=== PATIENT | female | born 1990 | race Two or more races ===

== ENCOUNTER 2024-07-30 15:08 | Inpatient (IN) | payer OTHER ==
[~2024-07-30] VITALS: Ht 152.4 cm; Wt 68.3 kg
--- NOTE | 2024-07-30 16:51 | ED.PDOC ---
History of Present Illness HPI Comments A 34 year old female presents to the ED with a chief complaint of RT eye vision loss onset today. Patient states she began experiencing dizziness and loss of vision of RT eye today. Patient experienced similar symptoms about 1 month ago during night time, went to sleep and symptoms resolved when she woke up. Patient denies any past medical history as well as head injury, LOC, eye injury, chest pain, shortness of breath, nausea, vomiting, diarrhea. No other symptoms or modifying factors present at this time. 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 Family History Family History: Reviewed,noncontributory to illness, No family hx of Cancer, No family hx of DM, No family hx of Heart michael, No family hx of HTN, No family hx ofKidney michael, No family hx of Liver michael, No family hx of Lung michael, No family hx of Stroke Social History Smoker: Non-Smoker Alcohol: Denies ETOH Use Drugs: Denies Drug Use Lives In: Home Constitutional: denies: chills, diaphoresis, fatigue, fever, malaise, sweats, weakness, others EENTM: reports: blurred vision, others (Loss of vision RT eye ); denies: double vision, ear bleeding, ear discharge, ear drainage, ear pain, ear ringing, eye pain, eye redness, hearing loss, mouth pain, mouth swelling, nasal discharge, nose bleeding, nose congestion, nose pain, photophobia, tearing, throat pain, throat swelling, voice changes Respiratory: denies: cough, hemoptysis, orthopnea, SOB at rest, shortness of breath, SOB with excertion, stridor, wheezing, others Cardiovascular: denies: chest pain, dizzy spells, diaphoresis, Dyspnea on exertion, edema, irregular heart beat, left arm pain, lightheadedness, palpitations, PND, syncope, others Gastrointestinal: denies: abdomen distended, abdominal pain, blood streaked bowels, constipated, diarrhea, dysphagia, difficulty swallowing, hematemesis, melena, nausea, poor appetite, poor fluid intake, rectal bleeding, rectal pain, vomiting, others Genitourinary: denies: abnormal vagina bleeding, burning, dyspareunia, dysuria, flank pain, frequency, hematuria, incontinence, pain, , vagina discharge, urgency, others Neurological: denies: dizziness, fainting, headache, left sided numbness, left sided weakness, numbness, paresthesia, pre-existing deficit, right sided numbne ss, right sided weakness, seizure, speech problems, tingling, tremors, weakness, others Musculoskeletal: denies: back pain, gout, joint pain, joint swelling, muscle pain, muscle stiffness, neck pain, others Integumetry: denies: bruises, change in color, change in hair/nails, dryness, laceration, lesions, lumps, rash, wounds, others Allergic/Immunocompromised: denies: Difficulty Healing, Frequent Infections, Hives, Itching, others Hematologic/Lymphatic: denies: anemia, blood clots, easy bleeding, easy bruising, swollen glands, others Endocrine: denies: excessive hunger, excessive sweating, excessive thirst, excessive urination, flushing, intolerance to cold, intolerance to heat, unexplained weight gain, unexplained weight loss, others Psychiatric: denies: anxiety, bipolar disorder, depression, hopeless, panic disorder, schizophrenia, sleepless, suicidal, others All Other Systems: Reviewed and Negative Physical Exam General Appearance: No Apparent Distress, Normal HEENT: Normal ENT Inspection, Pharynx Normal, TMs Normal Neck: Full Range of Motion, Non-Tender, Normal, Normal Inspection Respiratory: Chest Non-Tender, Lungs Clear, No Accessory Muscle Use, No Respiratory Distress, Normal Breath Sounds Cardiovascular: No Edema, No JVD, No Murmur, No Gallop, Normal Peripheral Pulses, Regular Rate/Rhythm Breast Exam: Deferred Gastrointestinal: No Organomegaly, Non Tender, No Pulsatile Mass, Normal Bowel Sounds, Soft Genitalia: Deferred Pelvic: Deferred Rectal: Deferred Extremities: No calf tenderness, Normal capillary refill, Normal inspection, Normal range of motion, Non-tender, No pedal edema Musculoskeletal : Apperance: Normal Neurologic: Alert, customer counter representative II-XII nml as Tested, No Motor Deficits, Normal Affect, Normal Mood, No Sensory Deficits Cerebellar Function: Normal Reflexes: Normal Skin: Dry, Normal Color, Warm Lymphatic: No Adenopathy Was a procedure done? Was a procedure done?: No Differential Dx Considerations may include: CVA, central retinal occlusion, retinal detachment X-Ray, Labs, Meds, VS Vital Signs Date Time Temp Pulse Resp B/P (MAP) Pulse Ox O2 Delivery O2 Flow Rate FiO2 07/30/24 16:40 97.7 90 18 137/75 (95) 10 Lab Test 07/30/24 17:36 07/30/24 16:49 Range/Units White Blood Count 7.6 4.4-10.8 10^3/uL Red Blood Count 3.97 L 4.0-5.20 10^6/uL Hemoglobin 7.4 L 12.2-16.2 g/dL Hematocrit 25.3 L 36.0-46.0 % Mean Corpuscular Volume 63.9 L 80.0-100.0 fL Mean Corpuscular Hemoglobin 18.7 L 28.0-32.0 pg Mean Corpuscular Hemoglobin Concent 29.3 L 32.0-36.0 g/dL Red Cell Distribution Width 18.6 H 11.8-14.3 % Platelet Count 351 140-450 10^3/uL Mean Platelet Volume 8.0 6.9-10.8 fL Neutrophils (%) (Auto) 71.1 37.0-80.0 % Lymphocytes (%) (Auto) 20.1 10.0-50.0 % Monocytes (%) (Auto) 6.5 0.0-12.0 % Eosinophils (%) (Auto) 1.4 0.0-7.0 % Basophils (%) (Auto) 0.9 0.0-2.0 % Neutrophils # (Auto) 5.4 1.6-8.6 10 ^3/uL Lymphocytes # (Auto) 1.5 0.4-5.4 10 ^3/uL Monocytes # (Auto) 0.5 0-1.3 10 ^3/uL Eosinophils # (Auto) 0.1 0-0.8 10 ^3/uL Basophils # (Auto) 0.1 0-0.2 10 ^3/uL Nucleated Red Blood Cells 0.1 % Platelet Estimate Adequate Hypochromasia (manual) Marked Microcytosis Marked Prothrombin Time 10.9 9.3-11.8 sec Prothrombin Time INR 1.03 0.9-1.15 Sodium Level 140 136-145 mmol/L Potassium Level 3.6 3.5-5.1 mmol/L Chloride Level 111 H 98-107 mmol/L Carbon Dioxide Level 22 20-31 mmol/L Anion Gap 7 5-15 Blood Urea Nitrogen 17 9-23 mg/dL Creatinine 0.65 0.550-1.02 mg/dL Glomerular Filtration Rate Calc 117 >90 mL/min BUN/Creatinine Ratio 26.2 H 10.0-20.0 Serum Glucose 96 74-106 mg/dL Calcium Level 9.5 8.7-10.4 mg/dL POC Glucose 98 70-106 mg/dl [place] [address] Ph: [phone] DIAGNOSTIC IMAGING Diagnostic Imaging Report : [id number] Signed PATIENT: LIEN VAZQUEZ ACCT: [id number] UNIT: [id number] : 1990 LOC: ER ROOM / BED: / AGE / SEX: 34 / F ADM STATUS: REG ER SERVICE [id number] ORDERING PHYSICIAN: YE TIM MD PROCEDURE(s): HWOCT - HEAD WITHOUT CONTRAST REASON: right eye vision loss ORDER NUMBER(s): [id number], ACCESSION NUMBER(s): [id number] EXAM: CT HEAD WITHOUT CONTRAST HISTORY: right eye vision loss TECHNIQUE: Helical axial scans of the head and neck obtained during the arterial phase of intravenous contrast enhancement. Multiplanar reformats. Postprocessing MIP and 3-D images. One or more of the following radiation dose reduction techniques were used for this examination: automated exposure control, adjustment of the mA and/or kV according to patient size, use of iterative reconstruction technique. Determination of the degree of stenosis in the internal carotid arteries is obtained using measurements of distal internal carotid diameter (directly or indirectly) as the denominator for stenosis measurement. The method utilized is similar to that utilized in the [place] Symptomatic Carotid Endarterectomy Trial (NASCET) method. If the degree of stenosis is greater than 30%, the actual percentage stenosis is given in the body of the report COMPARISON: None FINDINGS: No acute intracranial hemorrhage or evidence of large vessel territorial infarction identified on the noncontrast CT of the head. No midline shift. The basilar cisterns are patent. Asher-white differentiation appears relatively preserved. The visualized paranasal sinuses and mastoid air cells are clear. No grossly displaced calvarial abnormalities identified. VISUALIZED AORTIC ARCH: The visualized aortic arch appears normal in caliber. The visualized subclavian arteries appear patent. RIGHT CAROTID SYSTEM CERVICAL: Common carotid artery: Patent Internal carotid artery: Patent External carotid artery: Patent LEFT CAROTID SYSTEM CERVICAL: Common carotid artery: Normal Internal carotid artery: Normal External carotid artery: Normal VERTEBROBASILAR SYSTEM: Right vertebral artery: Patent Left vertebral artery: Patent Basilar artery: Patent RIGHT INTRACRANIAL VASCULATURE Internal carotid artery: Patent Middle cerebral artery: Patent Anterior cerebral artery: Patent LEFT INTRACRANIAL VASCULATURE Internal carotid artery: Patent Middle cerebral artery: Patent Anterior cerebral artery: Patent IMPRESSION: No acute intracranial hemorrhage or evidence of large vessel territorial infarction identified at this time. If there is persistent clinical concern, MRI may be obtained to further evaluate. No significant stenoses, occlusions or sizable aneurysmal dilatations identified involving the cervical or major intracranial arterial vasculature. ATED BY: LISANDRO TEJEDA MD DICTATED DATE/TIME: 07/30/241813 SIGNED BY: LISANDRO TEJEDA MD SIGNED DATE/TIME: 07/30/241813 CC: [place] [address] Ph: [phone] DIAGNOSTIC IMAGING Diagnostic Imaging Report : [id number] Signed PATIENT: LIEN VAZQUEZ ACCT: [id number] UNIT: [id number] : 1990 LOC: ER ROOM / BED: / AGE / SEX: 34 / F ADM STATUS: REG ER SERVICE 21 ORDERING PHYSICIAN: YE TIM MD PROCEDURE(s): [place] - ANGIO HEAD/Neck REASON: right eye pain ORDER NUMBER(s): [id number], ACCESSION NUMBER(s): [id number] EXAM: CT HEAD WITHOUT CONTRAST, CT ANGIO HEAD/Neck HISTORY: right eye vision loss TECHNIQUE: Helical axial scans of the head and neck obtained during the arterial phase of intravenous contrast enhancement. Multiplanar reformats. Postprocessing MIP and 3-D images. One or more of the following radiation dose reduction techniques were used for this examination: automated exposure control, adjustment of the mA and/or kV according to patient size, use of iterative reconstruction technique. Determination of the degree of stenosis in the internal carotid arteries is obtained using measurements of distal internal carotid diameter (directly or indirectly) as the denominator for stenosis measurement. The method utilized is similar to that utilized in the [place] Symptomatic Carotid Endarterectomy Trial (NASCET) method. If the degree of stenosis is greater than 30%, the actual percentage stenosis is given in the body of the report COMPARISON: None FINDINGS: No acute intracranial hemorrhage or evidence of large vessel territorial infarction identified on the noncontrast CT of the head. No midline shift. The basilar cisterns are patent. Asher-white differentiation appears relatively preserved. The visualized paranasal sinuses and mastoid air cells are clear. No grossly displaced calvarial abnormalities identified. VISUALIZED AORTIC ARCH: The visualized aortic arch appears normal in caliber. The visualized subclavian arteries appear patent. RIGHT CAROTID SYSTEM CERVICAL: Common carotid artery: Patent Internal carotid artery: Patent External carotid artery: Patent LEFT CAROTID SYSTEM CERVICAL: Common carotid artery: Normal Internal carotid artery: Normal External carotid artery: Normal VERTEBROBASILAR SYSTEM: Right vertebral artery: Patent Left vertebral artery: Patent Basilar artery: Patent RIGHT INTRACRANIAL VASCULATURE Internal carotid artery: Patent Middle cerebral artery: Patent Anterior cerebral artery: Patent LEFT INTRACRANIAL VASCULATURE Internal carotid artery: Patent Middle cerebral artery: Patent Anterior cerebral artery: Patent IMPRESSION: No acute intracranial hemorrhage or evidence of large vessel territorial infarction identified at this time. If there is persistent clinical concern, MRI may be obtained to further evaluate. No significant stenoses, occlusions or sizable aneurysmal dilatations identified involving the cervical or major intracranial arterial vasculature. ATED BY: LISANDRO TEJEDA MD DICTATED DATE/TIME: 07/30/241812 SIGNED BY: LISANDRO TEJEDA MD SIGNED DATE/TIME: 07/30/241812 CC: Time of 1ST Reevaluation: 17:15 Reevaluation 1ST: Unchanged Patient Education/Counseling: Diagnosis, Treatment, Prognosis Family Education/Counseling: No Family Present Additional Information The following tests were ordered, and results were reviewed by me: BMP, CBC, PROTHROMBIN TIME W/ INR, UA, PREGUA, CT HEAD WO CONTRAST, CT ANGIO HEAD/NECK I reviewed and agreed with the following test results read by other providers: CT HEAD WO CONTRAST, CT ANGIO HEAD/NECK I discussed treatment and results with medical personnel, patient Departure 1 Departure Time of Disposition: 19:10 (Patient with emergent neurologic concern. Discussed the case with ophthalmology at [facility] who refused this patient because the opthalmologist did not think this patient warrented emergent opthalmologic evaluation. Patient was evaluated for stroke by tele stroke who recommended patient be admitted for MRI and further workup. ) Impression: Primary Impression: Vision loss of right eye Disposition: ADMITTED INPATIENT Admit to: Med Surg Condition: Guarded Critical Care Note Critical Care Time?: Yes Critical care comment: Acute vision loss Authorized and Performed by: Ye Tim MD Total critical care time: Approximately 38 minutes Due to a high probability of clinically significant, life threatening deterioration, the patient required my highest level of preparedness to intervene emergently and I personally spent this critical care time directly and personally managing the patient. This critical care time included obtaining a history; examining the patient; pulse oximetry; ordering and review of studies; arranging urgent treatment with development of a management plan; evaluation of patient's response to treatment; frequent reassessment; and, discussions with other providers. This critical care time was performed to assess and manage the high probability of imminent, life-threatening deterioration that could result in multi-organ failure. It was exclusive of separately billable procedures and treating other patients and teaching time. Please see my other sections and the rest of the note for further information on patient assessment and treatment. Stability Stability form required: No Heart Score Heart Score: Heart Score Response (Comments) Value History N/A 0 EKG N/A 0 Age N/A 0 Risk Factors N/A 0 Troponin N/A 0 Total 0 I personally scribed for YE TIM MD ([email or web address]) on 07/30/24 at 16:51. Electronically submitted by Janneth Rollins ([email or web address]). I personally scribed for YE TIM MD ([email or web address]) on 07/30/24 at 16:52. Electronically submitted by Janneth Rollins ([email or web address]). I personally scribed for YE TIM MD ([email or web address]) on 07/30/24 at 17:29. Electronically submitted by Janneth Rollins ([email or web address]). I personally scribed for YE TIM MD ([email or web address]) on 07/30/24 at 18:36. Electronically submitted by Janneth Rollins ([email or web address]). YE TIM MD Jul 30, 2024 16:51
[2024-07-30] MEDS: IOHEXOL 350 MG/ML 100ML IJ ONE (17:50)
--- NOTE | 2024-07-30 18:10 | BSKYNEURO ---
[facility] Note # Demographics Consult Type: Acute Stroke Level 1 (0-4.5 hrs) Patient Location: Emergency Room First Name: LIEN Last Name: TAYLOR Date of : 1990 Age: 34 Facility: [facility] Time of Initial Page (): 07/30/2024, 17:29 Time of Return Call (): 07/30/2024, 17:29 # HPI History: Right eye vision loss and dizziness while in car. Painless Last Known Normal: 1600 mst # Scores Time of exam and NIHSS (): 07/30/2024, 18:03 Level of Consciousness 1a: [0] = Alert; keenly responsive LOC Questions 1b: [0] = Answers both questions correctly LOC Commands 1c: [0] = Performs both tasks correctly Best Gaze 2: [0] = Normal Visual 3: [0] = No visual loss Facial Palsy 4: [0] = Normal symmetrical movements Motor Arm Left 5a: [0] = No drift Motor Arm Right 5b: [0] = No drift Motor Leg Left 6a: [0] = No drift Motor Leg Right 6b: [0] = No drift Limb Ataxia 7: [0] = Absent Sensory 8: [0] = Normal Best Language 9: [0] = No aphasia Dysarthria 10: [0] = Normal Extinction and Inattention 11: [0] = No abnormality NIHSS Total: 0 # Exam Vitals: vital signs reviewed Additional Neurologic Exam: has some light perception in right eye on lateral side # Data Head CT: - no bleed - preliminarily reviewed by me, please refer to radiology read for official reading # Assessment Impression: CRAO vs other ophthalmologic cause vs mimic. No clear risk factors and very young. Recommend dedicated dilated eye exam. # Plan Thrombolytic/Intervention: Possible IA candidate Thrombolytic Exclusion (< 3 hour window): - non-disabling deficit Thrombolytic Exclusion: would not recommend thrombolytics without dedicated funduscopic exam. Possible IA Candidate: - CTA pending Target Blood Pressure: SBP < 220 Labs: - hemoglobin A1c - lipid panel Imaging: (urgency: STAT): - CT Angiogram Head and CT Angiogram Neck AND call back with results if abnormal Imaging: (urgency: routine): - MRI Brain without contrast Diagnostic Test: - echo with bubble study Therapy/Evaluation: - NPO until swallow evaluation - PT/OT evaluation - speech/swallow consultation Medication: - start statin with goal of LDL < 70 - Plavix 300 mg PO x1 now, then 75 mg daily x 21 days + asa 81mg x 21 days, followed by monotherapy thereafter Other: - If patient has any neurological deterioration please call me back immediately - I have discussed my recommendations with the referring provider - telemetry monitoring - LDL < 70 - will need event monitor or loop recorder as outpatient if atrial fibrillation not found as inpatient Additional Recommendations: stroke workup in the young if no other etiology identified. Disposition: observation # Logistics Attestation of consult completion: The patient is located at: [facility]. Facility staff participated in the visit. I performed this telemedicine visit from my offsite office utilizing interactive 2 way audio and visual telecommunication technology. Total time spent in telemedicine encounter: I spent 21 minutes reviewing clini yoli data and/or imaging, obtaining history, examining the patient, communicating with the onsite care team, and in preparation of this report. Critical Care time: 21 minutes of this encounter were critical care time. Due to a high probability of clinically significant, life-threatening neurologic deterioration, the patient required my highest level of preparedness to intervene emergently. I spent this critical care time managing the patient in conjunction with on-site providers who requested my consultation. In addition to the above, this critical care time included recommendation and review of studies, including imaging; arranging an urgent treatment and management plan with on-site providers; evaluation of patient's response to treatment; and documentation. This critical care time was performed to assess and manage the high probability of imminent, life-threatening deterioration that could result in neurologic catastrophe. # Demographics First Name: LIEN Last Name: TAYLOR Facility: [facility] Electronically signed at 07/30/2024 18:12 ([place] Time) by Henry Aponte MD Yes SANDY APONTE MD Jul 30, 2024 18:10
--- NOTE | 2024-07-30 18:16 | DVH ---
EXAM: CT HEAD WITHOUT CONTRAST, CT ANGIO HEAD/Neck HISTORY: right eye vision loss TECHNIQUE: Helical axial scans of the head and neck obtained during the arterial phase of intravenous contrast enhancement. Multiplanar reformats. Postprocessing MIP and 3-D images. One or more of the f ollowing radiation dose reduction techniques were used for this examination: automated exposure contr ol, adjustment of the mA and/or kV according to patient size, use of iterative reconstruction techniq ue. Determination of the degree of stenosis in the internal carotid arteries is obtained using measureme nts of distal internal carotid diameter (directly or indirectly) as the denominator for stenosis cristopher urement. The method utilized is similar to that utilized in the [place] Symptomatic Carotid E ndarterectomy Trial (NASCET) method. If the degree of stenosis is greater than 30%, the actual percen tage stenosis is given in the body of the report COMPARISON: None FINDINGS: No acute intracranial hemorrhage or evidence of large vessel territorial infarction identified on the noncontrast CT of the head. No midline shift. The basilar cisterns are patent. Asher-white differen tiation appears relatively preserved. The visualized paranasal sinuses and mastoid air cells are clear. No grossly displaced calvarial abno rmalities identified. VISUALIZED AORTIC ARCH: The visualized aortic arch appears normal in caliber. The visualized subclavian arteries appear patent. RIGHT CAROTID SYSTEM CERVICAL: Common carotid artery: Patent Internal carotid artery: Patent External carotid artery: Patent LEFT CAROTID SYSTEM CERVICAL: Common carotid artery: Normal Internal carotid artery: Normal External carotid artery: Normal VERTEBROBASILAR SYSTEM: Right vertebral artery: Patent Left vertebral artery: Patent Basilar artery: Patent RIGHT INTRACRANIAL VASCULATURE Internal carotid artery: Patent Middle cerebral artery: Patent Anterior cerebral artery: Patent LEFT INTRACRANIAL VASCULATURE Internal carotid artery: Patent Middle cerebral artery: Patent Anterior cerebral artery: Patent IMPRESSION: No acute intracranial hemorrhage or evidence of large vessel territorial infarction identified at thi s time. If there is persistent clinical concern, MRI may be obtained to further evaluate. No significant stenoses, occlusions or sizable aneurysmal dilatations identified involving the cervic al or major intracranial arterial vasculature.
[2024-07-30 18:38] LABS: Potassium 3.6 mmol/L (3.5-5.1); Sodium 140 mmol/L (136-145)
[2024-07-30 18:39] LABS: Anion Gap 7 (5-15); Calcium 9.5 mg/dL (8.7-10.4); Carbon Dioxide 22 mmol/L (20-31)
[2024-07-30 18:42] LABS: Basophils # (auto) 0.1 10 ^3/uL (0-0.2); Basophils % (auto) 0.9 % (0.0-2.0); Eosinophils # (auto) 0.1 10 ^3/uL (0-0.8); Eosinophils % (auto) 1.4 % (0.0-7.0); Hematocrit 25.3 % (36.0-46.0); Hemoglobin 7.4 g/dL (12.2-16.2); Lymphocytes # (auto) 1.5 10 ^3/uL (0.4-5.4); Lymphocytes % (auto) 20.1 % (10.0-50.0); Mean Corpuscular Hemoglobin 18.7 pg (28.0-32.0); Mean Corpuscular Hgb Conc. 29.3 g/dL (32.0-36.0); Mean Corpuscular Volume 63.9 fL (80.0-100.0); Monocytes # (auto) 0.5 10 ^3/uL (0-1.3); Monocytes % (auto) 6.5 % (0.0-12.0); Neutrophils # (auto) 5.4 10 ^3/uL (1.6-8.6); Neutrophils % (auto) 71.1 % (37.0-80.0); Nucleated Red Blood Cells % 0.1 %; Platelet Count (auto) 351 10^3/uL (140-450); Red Blood Cells 3.97 10^6/uL (4.0-5.20); Red Cell Distribution Width 18.6 % (11.8-14.3); White Blood Cell 7.6 10^3/uL (4.4-10.8)
[2024-07-30 18:43] LABS: Hypochromia Marked; Platelet Estimate Adequate
[2024-07-30 18:44] LABS: BUN/Creatinine Ratio 26.2 (10.0-20.0); Blood Urea Nitrogen 17 mg/dL (9-23); Glucose 96 mg/dL (74-106)
[2024-07-30 18:48] LABS: Chloride 111 mmol/L (98-107)
[2024-07-30 18:49] LABS: INR 1.03 (0.9-1.15); Prothrombin Time 10.9 sec (9.3-11.8)
[2024-07-30] MEDS: ACETAMINOPHEN 325 MG TAB PO ONE (19:54)
[2024-07-30] MEDS ORDERED: ONDANSETRON HCL 4 MG/2 ML VIAL IV PRN (20:15)
[2024-07-30] MEDS ORDERED: DOCUSATE SOD 100 MG CAP PO PRN (20:15)
[2024-07-30 21:08] VITALS: PULSE 98; RESP 18; O2SAT 100
[2024-07-30] MEDS: SODIUM CHLOR 0.9% PF (SALINE LOCK) 10ML VIAL/SYR IV SCH (22:10)
--- NOTE | 2024-07-30 22:24 | DVHHP2 ---
History of Present Illness Reason for Visit: Vision loss of right eye History of Present Illness The patient is a 34-year-old female who denies past medical history presented to [facility] ED for evaluation of right eye vision loss. Patient reports symptoms progressively get worse with dizziness, generalized weakness, getting worse that prompted this visit. Patient reports she experienced similar symptoms about a month ago but resolves on its own, admit to history of blood transfusion, but denies history of anemia. Patient was seen and evaluated in the ED, laboratory data shows WBC 7.6, hemoglobin 7.4, hematocrit 28.3, platelets 351, sodium 140, potassium 3.6, BUN 17, creatinine 0.65, GFR 117, glucose 96, blood pressure 110/66, heart rate 80, temperature 98.9 F, O2 saturation 97% on room air. Head CT showed no acute intracranial hemorrhage or evidence of large vessel territorial infarction identified at this time. On my assessment, patient denies chest pain, no headache, no dizziness, no diaphoresis, no shortness of breaths, no nausea, no vomiting, no fever, no chills. No other modifying factor or other associated signs and symptoms noted. The patient was admitted to the hospital for further evaluation and medical management. Past Medical History Denies past medical history Past Surgical History Denies all surgeries Family History Reviewed, noncontributory to the management of this case. Past Social History The patient lives at home, denies smoking, alcohol or illicit drugs abuse. Review of Systems Constitutional: Yes: Weakness; No: Fever, Chills, Sweats, Malaise, Other Eyes: Vision change (Blurry), Other (Loss of vision RT eye .); No: Pain, Conjunctivae inflammation, Eyelid inflammation, Redness ENT: No: Ear pain, Ear discharge, Nose pain, Nose discharge, Nose congestion, Mouth pain, Mouth swelling, Throat pain, Throat swelling, Other Respiratory: No: Cough, Dry, Shortness of breath, SOB with excertion, Wheezing, Hemoptysis, Pleuritic Pain, Sputum, Wheezing, Other Cardiovascular: No: Chest Pain, Palpitations, Orthopnea, Paroxysmal Noc. Dyspnea, Edema, Lt Headedness, Other Gastrointestinal: No: Nausea, Vomiting, Abdominal Pain, Diarrhea, Constipation, Melena, Hematochezia, Other Genitourinary: No Dysuria, No Frequency, No Incontinence, No Hematuria, No Retention, No Other Musculoskeletal: No: other, neck pain, shoulder pain, arm pain, back pain, hand pain, leg pain, foot pain Skin: No: Rash, Lesions, Jaundice, Bruising, Other Neurological: No: Weakness, Numbness, Incoordination, Change in speech, Confusion, Seizures, Other Allergies: Coded Allergies: NO KNOWN ALLERGIES (Unverified , 07/30/24) Medications Current Medications Medications Dose Ordered Sig/Moe Route Start Time Stop Time Status Last Admin Dose Admin Sodium Chloride 10 ml Q8HR IV 07/30/24 22:00 07/30/24 22:10 10 ML Acetaminophen/ Hydrocodone Bitart 1 tab Q4HP PRN PO 07/30/24 20:15 Ondansetron HCl 4 mg Q4HP PRN IV 07/30/24 20:15 Docusate Sodium 100 mg BIDPRN PRN PO 07/30/24 20:15 Acetaminophen 650 mg Q6HP PRN PO 07/30/24 20:15 Exam Vital Signs Vital Signs Date Time Temp Pulse Resp B/P (MAP) Pulse Ox O2 Delivery O2 Flow Rate FiO2 07/30/24 21:08 98 18 100 Room Air* 0 21 07/30/24 20:00 99/57 (71) 07/30/24 19:30 97.9 97.9 General Appearance: Alert, Oriented X3, Cooperative, No acute distress HEENT: Atraumatic, PERRLA, EOMI, Mucous membr. moist/pink Respiratory: Clear to auscultation, Normal air movement Cardiovascular: Regular rate, Normal S1, Normal S2, No murmurs Abdominal: Normal bowel sounds, Soft, No tenderness, No hepatospenomegaly, No masses Extremities: No clubbing, No cyanosis, No edema, Normal pulses, No tenderness/swelling Skin: No rashes, No breakdown, No significant lesion Neuro: Normal gait, Normal speech, Strength at 5/5 X4 ext, Normal tone, Sensation intact, Cranial nerves 3-12 NL, Reflexes 2+ Psych/Mental Status: Mental status NL, Mood NL Labs/Xrays Labs Test 07/30/24 17:36 07/30/24 16:49 Range/Units White Blood Count 7.6 4.4-10.8 10^3/uL Red Blood Count 3.97 L 4.0-5.20 10^6/uL Hemoglobin 7.4 L 12.2-16.2 g/dL Hematocrit 25.3 L 36.0-46.0 % Mean Corpuscular Volume 63.9 L 80.0-100.0 fL Mean Corpuscular Hemoglobin 18.7 L 28.0-32.0 pg Mean Corpuscular Hemoglobin Concent 29.3 L 32.0-36.0 g/dL Red Cell Distribution Width 18.6 H 11.8-14.3 % Platelet Count 351 140-450 10^3/uL Mean Platelet Volume 8.0 6.9-10.8 fL Neutrophils (%) (Auto) 71.1 37.0-80.0 % Lymphocytes (%) (Auto) 20.1 10.0-50.0 % Monocytes (%) (Auto) 6.5 0.0-12.0 % Eosinophils (%) (Auto) 1.4 0.0-7.0 % Basophils (%) (Auto) 0.9 0.0-2.0 % Neutrophils # (Auto) 5.4 1.6-8.6 10 ^3/uL Lymphocytes # (Auto) 1.5 0.4-5.4 10 ^3/uL Monocytes # (Auto) 0.5 0-1.3 10 ^3/uL Eosinophils # (Auto) 0.1 0-0.8 10 ^3/uL Basophils # (Auto) 0.1 0-0.2 10 ^3/uL Nucleated Red Blood Cells 0.1 % Platelet Estimate Adequate Hypochromasia (manual) Marked Microcytosis Marked Prothrombin Time 10.9 9.3-11.8 sec Prothrombin Time INR 1.03 0.9-1.15 Sodium Level 140 136-145 mmol/L Potassium Level 3.6 3.5-5.1 mmol/L Chloride Level 111 H 98-107 mmol/L Carbon Dioxide Level 22 20-31 mmol/L Anion Gap 7 5-15 Blood Urea Nitrogen 17 9-23 mg/dL Creatinine 0.65 0.550-1.02 mg/dL Glomerular Filtration Rate Calc 117 >90 mL/min BUN/Creatinine Ratio 26.2 H 10.0-20.0 Serum Glucose 96 74-106 mg/dL Calcium Level 9.5 8.7-10.4 mg/dL POC Glucose 98 70-106 mg/dl PATIENT: LIEN VAZQUEZ ACCT: [id number] UNIT: [id number] : 1990 LOC: ER ROOM / BED: / AGE / SEX: 34 / F ADM STATUS: REG ER SERVICE 1722 ORDERING PHYSICIAN: YE TIM MD PROCEDURE(s): [place] - ANGIO HEAD/Neck REASON: right eye pain ORDER NUMBER(s): [id number], ACCESSION NUMBER(s): [id number] EXAM: CT HEAD WITHOUT CONTRAST, CT ANGIO HEAD/Neck HISTORY: right eye vision loss TECHNIQUE: Helical axial scans of the head and neck obtained during the arterial phase of intravenous contrast enhancement. Multiplanar reformats. Postprocessing MIP and 3-D images. One or more of the following radiation dose reduction techniques were used for this examination: automated exposure control, adjustment of the mA and/or kV according to patient size, use of iterative reconstruction technique. Determination of the degree of stenosis in the internal carotid arteries is obtained using measurements of distal internal carotid diameter (directly or indirectly) as the denominator for stenosis measurement. The method utilized is similar to that utilized in the [place] Citizen Symptomatic Carotid Endarterectomy Trial (NASCET) method. If the degree of stenosis is greater than 30%, the actual percentage stenosis is given in the body of the report COMPARISON: None FINDINGS: No acute intracranial hemorrhage or evidence of large vessel territorial infarction identified on the noncontrast CT of the head. No midline shift. The basilar cisterns are patent. Asher-white differentiation appears relatively preserved. The visualized paranasal sinuses and mastoid air cells are clear. No grossly displaced calvarial abnormalities identified. VISUALIZED AORTIC ARCH: The visualized aortic arch appears normal in caliber. The visualized subclavian arteries appear patent. RIGHT CAROTID SYSTEM CERVICAL: Common carotid artery: Patent Internal carotid artery: Patent External carotid artery: Patent LEFT CAROTID SYSTEM CERVICAL: Common carotid artery: Normal Internal carotid artery: Normal External carotid artery: Normal VERTEBROBASILAR SYSTEM: Right vertebral artery: Patent Left vertebral artery: Patent Basilar artery: Patent RIGHT INTRACRANIAL VASCULATURE Internal carotid artery: Patent Middle cerebral artery: Patent Anterior cerebral artery: Patent LEFT INTRACRANIAL VASCULATURE Internal carotid artery: Patent Middle cerebral artery: Patent Anterior cerebral artery: Patent IMPRESSION: No acute intracranial hemorrhage or evidence of large vessel territorial infarction identified at this time. If there is persistent clinical concern, MRI may be obtained to further evaluate. No significant stenoses, occlusions or sizable aneurysmal dilatations identified involving the cervical or major intracranial arterial vasculature. ORDERING PHYSICIAN: YE TIM MD PROCEDURE(s): HWOCT - HEAD WITHOUT CONTRAST REASON: right eye vision loss ORDER NUMBER(s): [id number], ACCESSION NUMBER(s): [id number] EXAM: CT HEAD WITHOUT CONTRAST HISTORY: right eye vision loss TECHNIQUE: Helical axial scans of the head and neck obtained during the arterial phase of intravenous contrast enhancement. Multiplanar reformats. Postprocessing MIP and 3-D images. One or more of the following radiation dose reduction techniques were used for this examination: automated exposure control, adjustment of the mA and/or kV according to patient size, use of iterative reconstruction technique. Determination of the degree of stenosis in the internal carotid arteries is obtained using measurements of distal internal carotid diameter (directly or indirectly) as the denominator for stenosis measurement. The method utilized is similar to that utilized in the [place] Citizen Symptomatic Carotid Endarterectomy Trial (NASCET) method. If the degree of stenosis is greater than 30%, the actual percentage stenosis is given in the body of the report COMPARISON: None FINDINGS: No acute intracranial hemorrhage or evidence of large vessel territorial infarction identified on the noncontrast CT of the head. No midline shift. The basilar cisterns are patent. Asher-white differentiation appears relatively preserved. The visualized paranasal sinuses and mastoid air cells are clear. No grossly displaced calvarial abnormalities identified. VISUALIZED AORTIC ARCH: The visualized aortic arch appears normal in caliber. The visualized subclavian arteries appear patent. RIGHT CAROTID SYSTEM CERVICAL: Common carotid artery: Patent Internal carotid artery: Patent External carotid artery: Patent LEFT CAROTID SYSTEM CERVICAL: Common carotid artery: Normal Internal carotid artery: Normal External carotid artery: Normal VERTEBROBASILAR SYSTEM: Right vertebral artery: Patent Left vertebral artery: Patent Basilar artery: Patent RIGHT INTRACRANIAL VASCULATURE Internal carotid artery: Patent Middle cerebral artery: Patent Anterior cerebral artery: Patent LEFT INTRACRANIAL VASCULATURE Internal carotid artery: Patent Middle cerebral artery: Patent Anterior cerebral artery: Patent IMPRESSION: No acute intracranial hemorrhage or evidence of large vessel territorial infarction identified at this time. If there is persistent clinical concern, MRI may be obtained to further evaluate. No significant stenoses, occlusions or sizable aneurysmal dilatations identified involving the cervical or major intracranial arterial vasculature. Assessment/Plan Assessment/Plan Vision loss of right eye Anemia, unspecified Generalized weakness Plan 1. Admit to telemetry unit 2. Breathing treatment 3. Pain control management 4. Management of fluids and electrolytes 5. Consultation for Neurology 6. Diagnostic tests-head CT 7. DVT prophylaxis-on SCDs 8. Repeat labs CBC, CMP in a.m. 9. Continue with current medical management 10. Treatment plan discussed with patient and RN. Patient verbalized understanding. Plan discussed with: Patient, Other (RN) My Orders Orders - RANULFO OVERTON DNP Procedure Category Date Status Time Allergies JAEL 07/30/24 In Process 20:09 Code Status CODE 07/30/24 Transmitted 20:09 Sodium Chloride Lock PHA 07/30/24 In Process (Saline Lock Ns) 22:00 Oxygen Per Hour RT 07/30/24 Transmitted 20:09 Hydrocodone-Acet PHA 07/30/24 In Process 5/325mg Tab (Show Low 20:15 Ondansetron Hcl PHA 07/30/24 In Process (Zofran) 20:15 Docusate Sodium PHA 07/30/24 In Process Capsule (Colace 20:15 Complete Blood Count LAB 07/31/24 Verified 04:00 Comprehensive LAB 07/31/24 Verified Metabolic Panel 04:00 Cardiac DIET 07/31/24 Transmitted Diet-2gna,Lofat,Lochol Breakfast Condition: Serious JAEL 07/30/24 In Process 20:09 Acetaminophen Tablet PHA 07/30/24 In Process (Tylenol Tablet) 20:15 Bedrest With Bathroom JAEL 07/30/24 In Process Privileg 20:09 Sequential JAEL 07/30/24 In Process Compression Device * Neurology Consult CONS 07/30/24 Transmitted 20:11 Aborh Type BBK 07/30/24 In Process 20:49 Antibody Screen BBK 07/30/24 In Process 20:49 Problem List: (1) Vision loss of right eye (2) Anemia, unspecified (3) Generalized weakness Date of Service: Jul 30, 2024 Billing Provider: RANULFO OVERTON DNP Common Visit Codes: [id number] INP/OBS CARE (HIGH) RANULFO OVERTON DNP Jul 30, 2024 22:23
[2024-07-30] MEDS ORDERED: MORPHINE SULFATE INJ 2 MG/ml SYRG IV PRN (22:30)
[2024-07-30] MEDS ORDERED: NITROGLYCERIN 0.4 MG SL TAB SL PRN (22:30)
[2024-07-31] VITALS (7 sets, daily range): BP systolic 102–116; BP diastolic 56–65; PULSE 64–80; RESP 13–19; TEMP 97.7–98.1; O2SAT 99–100
[2024-07-31] MEDS: SODIUM CHLORIDE 0.9% 500 ML IV ONE (03:45)
[2024-07-31 06:38] LABS: Basophils # (auto) 0 10 ^3/uL (0-0.2); Eosinophils # (auto) 0.2 10 ^3/uL (0-0.8); Neutrophils # (auto) 2.4 10 ^3/uL (1.6-8.6)
[2024-07-31 06:40] LABS: Basophils % (auto) 0.9 % (0.0-2.0); Eosinophils % (auto) 3.8 % (0.0-7.0); Hematocrit 21.7 % (36.0-46.0); Lymphocytes # (auto) 1.4 10 ^3/uL (0.4-5.4); Mean Corpuscular Hemoglobin 19.4 pg (28.0-32.0); Mean Corpuscular Hgb Conc. 30.2 g/dL (32.0-36.0); Monocytes # (auto) 0.5 10 ^3/uL (0-1.3); Monocytes % (auto) 10.3 % (0.0-12.0); Nucleated Red Blood Cells % 0.2 %; Platelet Count (auto) 292 10^3/uL (140-450); Red Cell Distribution Width 18.8 % (11.8-14.3); White Blood Cell 4.5 10^3/uL (4.4-10.8)
[2024-07-31 06:46] LABS: Albumin 3.7 g/dL (3.2-4.8); Anion Gap 6 (5-15); Blood Urea Nitrogen 15 mg/dL (9-23); Carbon Dioxide 22 mmol/L (20-31); Glucose 92 mg/dL (74-106); Hemoglobin 6.6 g/dL (12.2-16.2); Potassium 3.7 mmol/L (3.5-5.1); Sodium 139 mmol/L (136-145)
[2024-07-31 06:47] LABS: Bilirubin, Total 0.7 mg/dL (0.2-1.0); Total Protein 6.2 g/dL (5.7-8.2)
[2024-07-31] MEDS ORDERED: diphenhdrAMINE HCL 25 MG CAP PO PRN (07:00)
[2024-07-31] MEDS: ACETAMINOPHEN 500 MG TAB or CAP PO ONE (07:00)
[2024-07-31 07:05] LABS: Alanine Aminotransferase < 9 U/L (7-40); Alkaline Phosphatase 43 U/L (46-116); Aspartate Aminotransferase < 8 U/L (13-40); Chloride 111 mmol/L (98-107)
[2024-07-31 07:06] LABS: Calcium 8.6 mg/dL (8.7-10.4)
[2024-07-31 07:39] LABS: % Iron Saturation 4.5 % (15-50)
[2024-07-31 07:42] LABS: Urine Bacteria None Seen /hpf (None Seen)
[2024-07-31 08:10] LABS: Urine Blood Negative /uL (Negative); Urine Clarity Clear (Clear); Urine Color Yellow (Yellow); Urine Mucus FEW (None Seen); Urine Protein, UAD TRACE (Negative); Urine Squamous Epithelial Cell FEW /hpf (<5); Urine Urobilinogen 2 mg/dL (Negative); Urine WBC 3 /hpf (0 - 5)
[2024-07-31] MEDS: HYDROcodone-ACET 5/325MG TAB PO PRN (08:36)
[2024-07-31 08:58] LABS: Urine Specific Gravity > 1.050 (1.001-1.035)
[2024-07-31] MEDS: ACETAMINOPHEN 325 MG TAB PO PRN (11:02)
--- NOTE | 2024-07-31 13:43 | DVHPN2 ---
Subjective Feels better. She can see better with the right eye Reviewed: Care Plan, H&P, Labs, Medications, Previous Orders, Radiology, Other (Neurology consult) Changes from previous H/P or p: No Changes Objective Vitals Vital Signs Date Time Temp Pulse Resp B/P (MAP) Pulse Ox O2 Delivery O2 Flow Rate FiO2 07/31/24 08:39 98.1 82 13 104/63 (77) 100 98.1 07/31/24 08:00 Room Air* 0 21 Intake/Output Intake and Output 07/31/24 07:00 Intake Total 500 ml Balance 500 ml Intake IV Total 500 ml General Appearance: Alert, Oriented X3, Cooperative, No acute distress HEENT: Atraumatic, PERRLA, EOMI Lungs: Clear to auscultation Cardiovascular: Regular rate, Normal S1, Normal S2 Medications Current Medications Medications Dose Ordered Sig/Moe Route Start Time Stop Time Status Last Admin Dose Admin Sodium Chloride 10 ml Q8HR IV 07/30/24 22:00 07/31/24 06:26 10 ML Acetaminophen/ Hydrocodone Bitart 1 tab Q4HP PRN PO 07/30/24 20:15 07/31/24 08:36 1 TAB Ondansetron HCl 4 mg Q4HP PRN IV 07/30/24 20:15 Docusate Sodium 100 mg BIDPRN PRN PO 07/30/24 20:15 Acetaminophen 650 mg Q6HP PRN PO 07/30/24 20:15 07/31/24 11:02 650 MG Nitroglycerin 0.4 mg Q5MINP PRN SL 07/30/24 22:30 Morphine Sulfate 2 mg Q30M PRN IV 07/30/24 22:30 Diphenhydramine HCl 25 mg ONCE PRN PO 07/31/24 07:00 Laboratory Results Laboratory Tests 07/31/24 05:30 Chemistry Test 07/30/24 17:36 07/31/24 05:30 Calcium Level 9.5 mg/dL (8.7-10.4) 8.6 mg/dL (8.7-10.4) L Albumin 3.7 g/dL (3.2-4.8) Total Protein 6.2 g/dL (5.7-8.2) Coagulation Test 07/30/24 17:36 Prothrombin Time 10.9 sec (9.3-11.8) Prothrombin Time INR 1.03 (0.9-1.15) LFT Test 07/31/24 05:30 Alanine Aminotransferase (ALT) < 9 U/L (7-40) Alkaline Phosphatase 43 U/L (46-116) L Aspartate Amino Transferase (AST) < 8 U/L (13-40) L Total Bilirubin 0.7 mg/dL (0.2-1.0) Urinalysis Test 07/31/24 07:11 Urine Color Yellow (Yellow) Urine Clarity Clear (Clear) Urine pH 6.0 (5.0-9.0) Urine Specific [place] > 1.050 (1.001-1.035) Urine Protein Trace (Negative) H Urine Ketones Negative (Negative) Urine Blood Negative /uL (Negative) Urine Nitrite Negative (Negative) Urine Bilirubin Negative (Negative) Urine Urobilinogen 2 mg/dL (Negative) H Urine Leukocyte Esterase Negative /uL (Negative) Urine RBC 3 /hpf (0 - 4) Urine WBC 3 /hpf (0 - 5) Urine Squamous Epithelial Cells Few /hpf (<5) Urine Bacteria None seen /hpf (None Seen) Urine Mucus Few (None Seen) Urine Glucose Normal mg/dL (Normal) Assessment/Plan Assessment/Plan Amaurosis fugax/temporary loss of vision in the right eye/improving Severe anemia with hemoglobin 6.6/heavy menses Iron-deficiency Plan: We will obtain brain MRI and labs to include lupus panel. Echocardiogram. Further plan per orders Plan discussed with: Patient Date of Service: Jul 31, 2024 Billing Provider: CARRI JAMISON MD Common Visit Codes: [id number] INP/OBS CARE(HIGH) CARRI JAMISON MD Jul 31, 2024 13:43
[2024-07-31 14:19] LABS: CRP High Sensitivity 0.03 mg/dL (<1.0)
[2024-07-31 14:54] LABS: Erythrocyte Sedimentation Rate 9 mm/hr (0-20)
--- NOTE | 2024-07-31 16:02 | DVHSR ---
APPROVED REPORT EXAM: Two-dimensional and M-mode echocardiogram with Doppler and color Doppler. Blood Pressure: 116/62 mmHg INDICATION CVA? RISK FACTORS Height: 5' , Weight: 139 DIMENSIONS LVDd4.4 (3.8-5.7cm)LA (2D)3.2 (1.9-4.0cm)Aortic Root2.7 (2.0-3.7cm) LVDs3.0 (2.5-4.0cm)LA (MM) (1.9-4.0cm)Aortic Cusp Exc1.4 (1.5-2.0cm) EF (%) 60.0 (55-70%)Rt. Atrium3.4 (1.9-4.0cm)Asc. Aorta cm IVSd0.9 (0.7-1.1cm)RV (D) (1.8-2.4cm) PWd0.9 (0.7-1.1cm) Mitral Valve MitralMitral Stenosis E wave0.80m/sMV Mean GR.mmHg A wave0.60m/sMV Peak GR.mmHg E/A ratio1.32D MVAcm2 Aortic Valve Aortic ValveAortic Stenosis V11.10m/Lenny Mean GR.4mmHg V21.40m/Lenny Peak GR.8mmHg LVOT Diameter2.0 (1.8-2.4cm)Doppler AVA2.47cm2 Pulmonic Valve V20.60m/s Conclusion LV EJECTION FRACTION IS 65 % NORMAL VALVES NO EFFUSION NORMAL RV FUNCTION AND SIZE
[2024-07-31] MEDS: ATORVASTATIN 20 MG TAB PO ONE (16:16)
[2024-07-31] MEDS: ASPirin 81 mg TAB PO ONE (16:16)
[2024-08-01] VITALS (9 sets, daily range): BP systolic 99–123; BP diastolic 53–70; PULSE 64–91; RESP 14–20; TEMP 97.5–98.5; O2SAT 96–100
--- NOTE | 2024-08-01 08:33 | DVH ---
PROCEDURE: MRI OF THE BRAIN WITHOUT CONTRAST. CLINICAL INDICATION: 34 years old, Female; Right eye vision loss. TECHNIQUE: Multiplanar, multi sequence MRI of the brain was performed without intravenous contrast. COMPARISON: CT HEAD WITHOUT CONTRAST on DOS: 07/30/24 FINDINGS: The signal abnormality of the brain parenchyma is within normal limits. There are no areas of restric charli diffusion to suggest acute infarct. No evidence of space occupying mass lesion, extra-axial colle ctions or hemorrhage is noted. The ventricles, sulci and basal cisterns are intact. There is no signa l abnormality in the posterior fossa. The paranasal sinuses and mastoid air cells are well pneumatized. The orbits and nasopharynx are inta ct. The osseous structures are intact. The vessels of the skull base demonstrate signal void consistent with patency. IMPRESSION: 1. No acute intracranial abnormality.
--- NOTE | 2024-08-01 08:47 | DVH ---
PROCEDURE: MRI MRA ANGIO HEAD BRAIN INDICATION: Right eye vision loss 08/01/2024 08:17 AM COMPARISON: None TECHNIQUE: MRA head intravenous contrast. 3D image postprocessing was performed on a dedicated workstation and images were used for interpretat ion and reporting. FINDINGS: MRA head: Bilateral internal carotid, anterior and middle cerebral arteries are patent. Patent anterior communi cating artery. The bilateral vertebral arteries are patent. The basilar artery is patent. Bilateral posterior cerebral arteries are patent. The bilateral posterior communicating arteries are patent. No evidence of hemodynamically significant stenosis, occlusion or aneurysm. IMPRESSION: 1. No evidence of hemodynamically significant intracranial stenosis, proximal occlusion or aneurysm.
[2024-08-01] MEDS: ASPirin 81 mg TAB PO SCH (09:31)
--- NOTE | 2024-08-01 11:34 | DVHPN2 ---
Subjective The patient is seen and examined at bedside. The patient stated that her right eye vision is improved. But she still not see well on that eye. Of the image is still occurring. Waiting for MRI of the brain. Reviewed: Care Plan, H&P, Labs, Medications, Previous Orders, Radiology, Other (Neurology consult) Changes from previous H/P or p: No Changes Objective Vitals Vital Signs Date Time Temp Pulse Resp B/P (MAP) Pulse Ox O2 Delivery O2 Flow Rate FiO2 08/01/24 08:38 97.8 78 16 110/69 (83) 96 97.8 07/31/24 20:00 Room Air* 0 21 Intake/Output Intake and Output 08/01/24 07:00 Intake Total 740 ml Balance 740 ml Intake Oral 440 ml Blood Product 300 ml # Voids 2 General Appearance: Alert, Oriented X3, Cooperative, No acute distress HEENT: Atraumatic, PERRLA, EOMI Lungs: Clear to auscultation Cardiovascular: Regular rate, Normal S1, Normal S2 Neuro: Other (Right eye minimal vision lost, the rest of the cranial nerve remained intact) Psych/Mental Status: Mental status NL Medications Current Medications Medications Dose Ordered Sig/Moe Route Start Time Stop Time Status Last Admin Dose Admin Sodium Chloride 10 ml Q8HR IV 07/30/24 22:00 08/01/24 05:52 10 ML Acetaminophen/ Hydrocodone Bitart 1 tab Q4HP PRN PO 07/30/24 20:15 08/01/24 09:32 1 TAB Ondansetron HCl 4 mg Q4HP PRN IV 07/30/24 20:15 Docusate Sodium 100 mg BIDPRN PRN PO 07/30/24 20:15 Acetaminophen 650 mg Q6HP PRN PO 07/30/24 20:15 08/01/24 07:40 650 MG Nitroglycerin 0.4 mg Q5MINP PRN SL 07/30/24 22:30 Morphine Sulfate 2 mg Q30M PRN IV 07/30/24 22:30 Diphenhydramine HCl 25 mg ONCE PRN PO 07/31/24 07:00 Aspirin 81 mg DAILY PO 08/01/24 10:00 08/01/24 09:31 81 MG Atorvastatin Calcium 10 mg HS PO 08/01/24 22:00 Laboratory Results Laboratory Tests 07/31/24 05:30 Urinalysis Test 07/31/24 07:11 Urine Color Yellow (Yellow) Urine Clarity Clear (Clear) Urine pH 6.0 (5.0-9.0) Urine Specific [place] > 1.050 (1.001-1.035) Urine Protein Trace (Negative) H Urine Ketones Negative (Negative) Urine Blood Negative /uL (Negative) Urine Nitrite Negative (Negative) Urine Bilirubin Negative (Negative) Urine Urobilinogen 2 mg/dL (Negative) H Urine Leukocyte Esterase Negative /uL (Negative) Urine RBC 3 /hpf (0 - 4) Urine WBC 3 /hpf (0 - 5) Urine Squamous Epithelial Cells Few /hpf (<5) Urine Bacteria None seen /hpf (None Seen) Urine Mucus Few (None Seen) Urine Glucose Normal mg/dL (Normal) Labs and/or images reviewed: Labs reviewed by me Assessment/Plan Assessment/Plan Vision loss of right eye Anemia, unspecified Generalized weakness Continuing current management. Continuing with aspirin. Waiting for MRI /MRA of brain to be done to rule out CVA or any vascular stenosis. Waiting for neurologist to see the patient. Encouraged the patient to be out of bed and ambulate. The patient is probably need ophthalmology with dilated examined as outpatient. This medical document was created using an electronic medical record system with M[employer]rency direct computerized dictation system. Although this document has been carefully reviewed, there may still be some phonetic and typographical errors. These areas are purely typographical due to imperfections of the software programs, and do not reflect any compromise in the patient's medical care. Plan discussed with: Patient My Orders Orders - FLACA BELL MD Procedure Category Date Status Time Complete Blood Count LAB 08/02/24 Verified 05:00 Complete Blood Count LAB 08/03/24 Verified 05:00 Complete Blood Count LAB 08/04/24 Verified 05:00 Basic Metabolic Panel LAB 08/02/24 Verified 05:00 Basic Metabolic Panel LAB 08/03/24 Verified 05:00 Basic Metabolic Panel LAB 08/04/24 Verified 05:00 Date of Service: Aug 01, 2024 Billing Provider: FLACA BELL MD Common Visit Codes: [id number] INP/OBS CARE(HIGH) FLACA BELL MD Aug 01, 2024 11:34
--- NOTE | 2024-08-01 19:05 | BSKYNEURO ---
[place] [facility] Note # Demographics Consult Type: General Neurology Patient Location: Inpatient First Name: LIEN Last Name: TAYLOR Date of : 1990 Age: 34 Gender: Male Facility: [facility] Time of Initial Page (): 08/01/2024, 11:44 Time of Return Call (): 08/01/2024, 11:45 # HPI History: 34 y/o F presents with monocular vision loss Rt eye 2 days ago and LUIS. # Exam Time of Exam (): 08/01/2024, 14:39 Mental Status: - awake - alert and oriented x 3 - follows commands Language: - normal speech Cranial Nerves: - extra ocular movements intact - normal visual mcnair - no facial droop Motor: - no drift Sensory: - normal sensation Cerebellar: - normal cerebellar exam # Data Other Labs: ESR 9 CTA Head: no large vessel occlusion CTA Neck: patent vessels MRI: no acute ischemia # Assessment Impression: monocular vision loss Rt eye # Plan Additional Recommendations: ophthalmology consult # Logistics Attestation of consult completion: The patient is located at: [facility]. Facility staff participated in the visit. I performed this telemedicine visit from my offsite office utilizing interactive 2 way audio and visual telecommunication technology. Total time spent in telemedicine encounter: I spent 30 minutes reviewing clinical data and/or imaging, obtaining history, examining the patient, commu nicating with the onsite care team, and in preparation of this report. # Demographics First Name: LIEN Last Name: TAYLOR Facility: [facility] Electronically signed at 08/01/2024 19:05 () by DO Leela Up ELIZABETH A DO Aug 01, 2024 19:05
[2024-08-01 19:06] LABS: Basophils # (auto) 0.1 10 ^3/uL (0-0.2); Basophils % (auto) 0.8 % (0.0-2.0); Eosinophils # (auto) 0.3 10 ^3/uL (0-0.8); Eosinophils % (auto) 4.2 % (0.0-7.0); Hematocrit 27.4 % (36.0-46.0); Hemoglobin 8.3 g/dL (12.2-16.2); Lymphocytes # (auto) 2.4 10 ^3/uL (0.4-5.4); Lymphocytes % (auto) 36.4 % (10.0-50.0); Mean Corpuscular Hemoglobin 20.5 pg (28.0-32.0); Mean Corpuscular Hgb Conc. 30.4 g/dL (32.0-36.0); Mean Corpuscular Volume 67.2 fL (80.0-100.0); Monocytes # (auto) 0.5 10 ^3/uL (0-1.3); Monocytes % (auto) 8.2 % (0.0-12.0); Neutrophils # (auto) 3.3 10 ^3/uL (1.6-8.6); Neutrophils % (auto) 50.4 % (37.0-80.0); Platelet Count (auto) 322 10^3/uL (140-450); Red Blood Cells 4.07 10^6/uL (4.0-5.20); Red Cell Distribution Width 20.8 % (11.8-14.3); White Blood Cell 6.6 10^3/uL (4.4-10.8)
[2024-08-01 19:11] LABS: Sodium 141 mmol/L (136-145)
[2024-08-01 19:12] LABS: Anion Gap 6 (5-15); Calcium 9.3 mg/dL (8.7-10.4); Carbon Dioxide 25 mmol/L (20-31)
[2024-08-01 19:17] LABS: Blood Urea Nitrogen 11 mg/dL (9-23)
[2024-08-01 19:30] LABS: Chloride 110 mmol/L (98-107); Glucose 112 mg/dL (74-106); Potassium 3.3 mmol/L (3.5-5.1)
[2024-08-01] MEDS: ATORVASTATIN 20 MG TAB PO SCH (21:47)
[2024-08-02 01:00] VITALS: BP 161/50; PULSE 85; RESP 17; TEMP 98; O2SAT 100
[2024-08-02 05:00] VITALS: BP 109/60; PULSE 80; RESP 16; TEMP 98.1; O2SAT 99
[2024-08-02 07:05] LABS: Basophils # (auto) 0 10 ^3/uL (0-0.2); Eosinophils # (auto) 0.2 10 ^3/uL (0-0.8); Eosinophils % (auto) 4.8 % (0.0-7.0); Hemoglobin 7.8 g/dL (12.2-16.2); Lymphocytes # (auto) 1.6 10 ^3/uL (0.4-5.4); Lymphocytes % (auto) 32.1 % (10.0-50.0); Mean Corpuscular Hemoglobin 20.1 pg (28.0-32.0); Mean Corpuscular Hgb Conc. 30.1 g/dL (32.0-36.0); Mean Corpuscular Volume 66.8 fL (80.0-100.0); Monocytes # (auto) 0.5 10 ^3/uL (0-1.3); Monocytes % (auto) 9.1 % (0.0-12.0); Neutrophils # (auto) 2.6 10 ^3/uL (1.6-8.6); Platelet Count (auto) 304 10^3/uL (140-450); Red Blood Cells 3.89 10^6/uL (4.0-5.20); Red Cell Distribution Width 20.8 % (11.8-14.3)
[2024-08-02 07:07] LABS: Anion Gap 7 (5-15); Carbon Dioxide 23 mmol/L (20-31); Sodium 140 mmol/L (136-145)
[2024-08-02 07:08] LABS: Calcium 8.9 mg/dL (8.7-10.4)
[2024-08-02 07:13] LABS: Blood Urea Nitrogen 12 mg/dL (9-23); Glucose 94 mg/dL (74-106)
[2024-08-02 07:15] LABS: Chloride 110 mmol/L (98-107)
[2024-08-02 08:00] VITALS: PULSE 65; PULSE 77; RESP 16; O2SAT 100
[2024-08-02 10:14] VITALS: BP 108/62; PULSE 72; RESP 16; TEMP 97.5; O2SAT 100
[2024-08-02] MEDS ORDERED: ASPI-325 PO (12:10)
--- NOTE | 2024-08-02 12:17 | DVHDS2 ---
Discharge Summary Date of Admission Jul 30, 2024 at 22:22 Date of Discharge: Aug 02, 2024 Admitting Diagnosis Vision loss of right eye Anemia, unspecified Generalized weakness Labs/Diagnostic Data: Laboratory Results Test 08/02/24 06:18 07/31/24 07:11 07/31/24 05:30 07/30/24 17:36 White Blood Count 5.0 10^3/uL (4.4-10.8) Red Blood Count 3.89 10^6/uL (4.0-5.20) Hemoglobin 7.8 g/dL (12.2-16.2) Hematocrit 26.0 % (36.0-46.0) Mean Corpuscular Volume 66.8 fL (80.0-100.0) Mean Corpuscular Hemoglobin 20.1 pg (28.0-32.0) Mean Corpuscular Hemoglobin Concent 30.1 g/dL (32.0-36.0) Red Cell Distribution Width 20.8 % (11.8-14.3) Platelet Count 304 10^3/uL (140-450) Mean Platelet Volume 7.9 fL (6.9-10.8) Neutrophils (%) (Auto) 53.0 % (37.0-80.0) Lymphocytes (%) (Auto) 32.1 % (10.0-50.0) Monocytes (%) (Auto) 9.1 % (0.0-12.0) Eosinophils (%) (Auto) 4.8 % (0.0-7.0) Basophils (%) (Auto) 1.0 % (0.0-2.0) Neutrophils # (Auto) 2.6 10 ^3/uL (1.6-8.6) Lymphocytes # (Auto) 1.6 10 ^3/uL (0.4-5.4) Monocytes # (Auto) 0.5 10 ^3/uL (0-1.3) Eosinophils # (Auto) 0.2 10 ^3/uL (0-0.8) Basophils # (Auto) 0 10 ^3/uL (0-0.2) Nucleated Red Blood Cells 0.0 % Sodium Level 140 mmol/L (136-145) Potassium Level 4.0 mmol/L (3.5-5.1) Chloride Level 110 mmol/L (98-107) Carbon Dioxide Level 23 mmol/L (20-31) Anion Gap 7 (5-15) Blood Urea Nitrogen 12 mg/dL (9-23) Creatinine 0.40 mg/dL (0.550-1.02) Glomerular Filtration Rate Calc 131 mL/min (>90) BUN/Creatinine Ratio 30.0 (10.0-20.0) Serum Glucose 94 mg/dL (74-106) Calcium Level 8.9 mg/dL (8.7-10.4) Urine Color Yellow (Yellow) Urine Clarity Clear (Clear) Urine pH 6.0 (5.0-9.0) Urine Specific [place] > 1.050 (1.001-1.035) Urine Protein Trace (Negative) Urine Ketones Negative (Negative) Urine Blood Negative /uL (Negative) Urine Nitrite Negative (Negative) Urine Bilirubin Negative (Negative) Urine Urobilinogen 2 mg/dL (Negative) Urine Leukocyte Esterase Negative /uL (Negative) Urine RBC 3 /hpf (0 - 4) Urine WBC 3 /hpf (0 - 5) Urine Squamous Epithelial Cells Few /hpf (<5) Urine Bacteria None seen /hpf (None Seen) Urine Mucus Few (None Seen) Urine Glucose Normal mg/dL (Normal) Erythrocyte Sedimentation Rate 9 mm/hr (0-20) Reticulocyte Count (auto) 1.86 % (0.5-1.5) Hemoglobin A1c 5.2 % A1C (<5.7) Iron Level 17 ug/dL (50-170) Total Iron Binding Capacity 378 ug/dL (250-425) Percent Iron Saturation 4.5 % (15-50) Ferritin 2.7 ng/mL (10-291) Total Bilirubin 0.7 mg/dL (0.2-1.0) Aspartate Amino Transferase (AST) < 8 U/L (13-40) Alanine Aminotransferase (ALT) < 9 U/L (7-40) Alkaline Phosphatase 43 U/L (46-116) Lactate Dehydrogenase 109 U/L (120-246) C-Reactive Protein High Sensitivity 0.03 mg/dL (<1.0) Total Protein 6.2 g/dL (5.7-8.2) Albumin 3.7 g/dL (3.2-4.8) Triglycerides Level 45 mg/dL (< 150) Cholesterol Level 105 mg/dL (< 200) LDL Cholesterol 58 mg/dL (< 100) HDL Cholesterol 42 mg/dL (40-59) Platelet Estimate Adequate Hypochromasia (manual) Marked Microcytosis Marked Prothrombin Time 10.9 sec (9.3-11.8) Prothrombin Time INR 1.03 (0.9-1.15) Test 07/30/24 16:49 POC Glucose 98 mg/dl (70-106) Other Laboratory Tests 08/02/24 06:18 Brief Hx & Hospital Course: This is a 34 years old female with no known past medical history came to emergency department with chief complaint of right eye lesion loss. Patient also had progressive worse with dizziness, generalized weakness, that prompt her visit to emergency department. The patient his is similar symptoms about a month ago but resolved on it own. The patient was admitted. CT head showed no acute intracranial hemorrhage any evidence of large vessel infarct. The patient subsequently had MRI of the brain and MRA of the brain done which remained normal. No stenosis, no acute CVA. Psychiatrist and also tele neurologist see the patient. Recommend outpatient ophthalmology follow up especially with specialist of retina as soon as possible. Activity as tolerated. Diet per home diet. Recommend low-salt low-cholesterol diet. Physical exam: HEENT: Normocephalic atraumatic pupils equal react to light and accommodation. Extraocular muscles intact, conjunctiva pink, oropharynx moist, no thrush, no exudate. Lymphatic: No lymphadenopathy Cardiovascular exam: S1, S2 was heard. No murmurs, rubs, gallops Lung: Clear on auscultation bilaterally, no wheeze, rale, rhonchi. GI: Abdominal soft, nondistended, nontenderness, positive bowel sounds. Extremity: No crepitus, cyanosis, edema. Pedal pulses present bilateral. Full range of motion. Skin: Normal turgor, no rash. Psych: Alert, oriented x3. Neurology: No focal deficits, cranial nerve II to XII grossly intact. This medical document was created using an electronic medical record system with [employer] direct computerized dictation system. Although this document has been carefully reviewed, there may still be some phonetic and typographical errors. These areas are purely typographical due to imperfections of the software programs, and do not reflect any compromise in the patient's medical care. Condition at Discharge: Stable Final Diagnosis/Problems List Vision loss of right eye Ruled out CVA any abnormality per MRI/ MRA of brain and other imaging studying Anemia, unspecified Generalized weakness Discharge Disposition: Home Discharge Instruct/Medications Diet: Cardiac 2g Na,low cholest Activity: No Restrictions, As Tolerated Follow Up/Referral: pcp 1-2 weeks Opthamologist for retina exam as soon as possible Medications: Resume home meds Discharge Statement: "Patient was advised to return to the ER or call 911 if any headaches, dizziness, shortness of breath, chest pain, abdominal pain, bleeding, fevers, or worsening of medical condition. Patient was counseled about treatment plan, medications, possible side effects, patientverbalized understanding. All questions were answered to the best of my ability. This discharge took greater then 30 minutes in planning, reviewing documentation, counseling the patient, and discussing with other team members." ASSESSMENT ASSESSMENT Assessment Right eye vision lost Date of Service: Aug 02, 2024 Billing Provider: FLACA BELL MD Common Visit Codes: 65810-JCE/OBS DISCH DAY >30min FLACA BELL MD Aug 02, 2024 12:17
[2024-08-02 12:45] VITALS: BP 108/62; PULSE 77; RESP 16; TEMP 97.5; O2SAT 100
[2024-08-02 14:00] VITALS: BP 111/70; PULSE 92; RESP 16; TEMP 97.9; O2SAT 100
== END 2024-08-02 13:30 | disposition home or self-care (01) | DRG 663 ==
LOC: ER 15:08 → TELE 22:22 → TELE-WESTW 07-31 09:38
PROVIDERS: ADMIT Nurse Practitioner Family; ATTEND Internal Medicine
PROC: 30233N1 Transfusion of Nonautologous Red Blood Cells into Peripheral Vein, Percutaneous Approach (ICD-10-PCS; principal; 2024-07-31)
DX: D62 Acute posthemorrhagic anemia (principal); H54.61 Unqualified visual loss, right eye, normal vision left eye; N92.0 Excessive and frequent menstruation with regular cycle
CPT/HCPCS: 36415; 70450; 70496; 70545; 70551; 80048; 80053; 80061; 81001; 82728; 82962; 83036; 83540; 83550; 83615; 85025; 85045; 85610; 85652; 86141; 86850; 86900; 86901; 86920; 93306; 99291; G0378